=== PATIENT | female | born 1990 | race Caucasian/White ===

== ENCOUNTER 2018-11-27 21:27 | Emergency (ER) | payer MEDICAID ==
[~2018-11-27] VITALS: Ht 165.1 cm; Wt 59.0 kg
[2018-11-27 21:51] VITALS: BP 123/69
[2018-11-27] MEDS ORDERED: ACETAMINOPHEN EXTRA STRENGTH 500 MG TAB PO ONE (21:55)
--- NOTE | 2018-11-27 21:55 | NUR ---
TO LOBBY A/W BED, AMBULATORY, MEDICATED PER PROTOCOL , TOLERATED WELL.
--- NOTE | 2018-11-28 00:05 | NUR ---
PT AMBULATED TO BED 03
--- NOTE | 2018-11-28 00:07 | NUR ---
PATIENT CAME INTO ER WITH C/O SORE THROAT FOR 2 MONTHS AND FEVER FOR 3 DAYS. DENIES N/V/D; SKIN IS PINK/WARM/DRY; AAOX4 WITH EVEN AND STEADY GAIT; PATIENT STATES PAIN OF 5/10 AT THIS TIME; VSS; PATIENT POSITIONED FOR COMFORT; HOB ELEVATED; BEDRAILS UP X2; BED DOWN. ER MD MADE AWARE OF PT STATUS.
[2018-11-28 00:48] VITALS: BP 117/61
--- NOTE | 2018-11-28 00:48 | NUR ---
Patient discharged with v/s stable. Written and verbal after care instructions given and explained. Patient alert, oriented and verbalized understanding of instructions. Ambulatory with steady gait. All questions addressed prior to discharge. ID band removed. Patient advised to follow up with PMD. Rx of AZITHROMYCIN 250MGM, PROMETHAZINE HYDROCHLORIDE/DEXTOMETHORPHAN HYDROBROMIDE 6.25MG-15MG/5ML given. Patient educated on indication of medication including possible reaction and side effects. Opportunity to ask questions provided and answered.
== END 2018-11-28 00:48 | disposition home or self-care (01) ==
LOC: MED 21:27
DX: J03.90 Acute tonsillitis, unspecified (principal); H92.02 Otalgia, left ear; R30.9 Painful micturition, unspecified; H91.92 Unspecified hearing loss, left ear; Z88.0 Allergy status to penicillin
CPT/HCPCS: 99283